=== PATIENT | female | born 1955 | race African-American/Black ===

== ENCOUNTER 2017-02-12 13:25 | Emergency (ER) | payer OTHER ==
--- NOTE | 2017-02-12 16:01 | ER Document Report ---
HPI - HPI Patient complains to provider of: right shoulder and back pain Onset: Other - several days Onset/Duration: Gradual Quality of pain: Burning, Throbbing Pain Level: 5 Context: 61-year-old female complains of right shoulder pain that she has had intermittent for several years and also right-sided back pain which radiates into her right leg down to her right great toe. She is worried that she has a blood clot in her leg. She has a history of sciatica. No saddle anesthesia. No fever. History of cancer, no travel, no immobility. Associated Symptoms: None Exacerbated by: Movement Relieved by: Denies Similar symptoms previously: Yes Recently seen / treated by doctor: No - ROS ROS below otherwise negative: Yes Systems Reviewed and Negative: Yes All other systems reviewed and negative - CARDIOVASCULAR Cardiovascular: DENIES: Chest pain - DERM Skin Color: Normal Past Medical History - General Information source: Patient - Social History Smoking Status: Never Smoker Chew tobacco use (# tins/day): No Frequency of alcohol use: None Drug Abuse: None Lives with: Family Family History: Reviewed & Not Pertinent - Past Medical History Cardiac Medical History: Reports: Hx Hypertension Pulmonary Medical History: Reports: Hx Asthma Renal/ Medical History: Denies: Hx Peritoneal Dialysis Past Surgical History: Reports: Hx Abdominal Surgery - hernia repair, Hx Orthopedic Surgery - lt hammer toe Vertical Provider Document - CONSTITUTIONAL Agree With Documented VS: Yes Exam Limitations: No Limitations - INFECTION CONTROL TRAVEL OUTSIDE OF THE [place] IN LAST 30 DAYS: No - HEENT HEENT: Normocephalic. negative: Conjuctival Injection - NECK Neck: Supple - RESPIRATORY Respiratory: Breath Sounds Normal, No Respiratory Distress O2 Sat by Pulse Oximetry: 99 - CARDIOVASCULAR Cardiovascular: Regular Rate, Regular Rhythm - GI/ABDOMEN Gastrointestinal: Abdomen Soft, Abdomen Non-Tender - BACK Back: Normal Inspection Notes: tender right lumbar muscles into the sacroiliac joint - MUSCULOSKELETAL/EXTREMETIES Musculoskeletal/Extremeties: MAEW, FROM, Tender - see above, No Edema. negative : Eccymosis - NEURO Level of Consciousness: Awake, Alert Motor/Sensory: No Motor Deficit, No Sensory Deficit Deep Tendon Reflexes: 2+ - Bilateral ankle and patellar - DERM Integumentary: Warm, Dry, No Rash Course - Re-evaluation Re-evalutation: 02/12/17 16:11 Venous Doppler ultrasound is negative I will treat her for low back pain with sciatica. - Vital Signs Vital signs: Temp Pulse Resp BP Pulse Ox 98.4 F 96 14 181/93 H 99 02/12/17 13:34 02/12/17 13:34 02/12/17 13:34 02/12/17 13:34 02/12/17 13:34 Discharge - Discharge Clinical Impression: Chronic right shoulder pain Chronic low back pain Qualifiers: Back pain laterality: right Sciatica presence: with sciatica Sciatica laterality: sciatica of right side Qualified Code(s): M54.41 - Lumbago with sciatica, right side Sciatica Qualifiers: Laterality: right Qualified Code(s): M54.31 - Sciatica, right side Condition: Good Disposition: HOME, SELF-CARE Instructions: Anti-Inflammatory Medication ([facility]), Arthralgia ([facility]), Low Back Pain ([facility]), Muscle Relaxers ([facility]), Myalagia (Muscle Pain) ([facility]), Sciatica ([facility]) , Ultram ([facility]) Additional Instructions: warm compress to er if worse see the orthopedic doctor if persists Please complete the patient satisfaction survey if you get one, and return it.. If you do not receive a survey, then you can go to the [facility] website, [email or web address] and place your comments about your very good care. Thank you very much. It was a pleasure being your medical provider today. Prescriptions: Ibuprofen [Motrin 600 mg Tablet] 600 mg PO Q8HP PRN #20 tablet PRN Reason: Cyclobenzaprine HCl [Flexeril 10 Mg Tablet] 10 mg PO TIDP PRN #20 tablet PRN Reason: Tramadol HCl [Ultram 50 mg Tablet] 50 mg PO ASDIR PRN #20 tablet PRN Reason: Referrals: JYOTI MENA MD [ACTIVE STAFF] - Follow up as needed
--- NOTE | 2017-02-12 16:07 | RADIOLOGY REPORT (SQ) ---
EXAM DESCRIPTION: VENOUS UNILATERAL LOWER COMPLETED DATE/TIME: 02/12/2017 3:54 pm REASON FOR STUDY: right leg COMPARISON: None. TECHNIQUE: Dynamic and static persaud scale and color images acquired of the right leg venous system. S elected spectral images acquired with additional compression and augmentation maneuvers. The contrala teral common femoral vein and saphenofemoral junction were also imaged. Images stored on PACS. LIMITATIONS: None. FINDINGS: COMMON FEMORAL: Normal phasicity, compression and augmentation. No visualized echogenic ma terial on persaud scale. No defects on color images. FEMORAL: Normal compression and augmentation. No visualized echogenic material on persaud scale. No defe cts on color images. POPLITEAL: Normal compression, augmentation. No visualized echogenic material on persaud scale. No defec ts on color images. CALF VESSELS: Normal compression, augmentation. No visualized echogenic material on persaud scale. No de fects on color images. GSV and SSV: Normal compression, augmentation. No visualized echogenic material on persaud scale. No def ects on color images. ANY DEEP VENOUS INSUFFICIENCY: Not evaluated. ANY EVIDENCE OF POPLITEAL CYST: No. OTHER: No other significant finding. CONTRALATERAL COMMON FEMORAL VEIN AND SAPHENOFEMORAL JUNCTION: Normal phasicity, compression and augmentation. No visualized echogenic material on persaud scale. No de fects on color images. IMPRESSION: NO EVIDENCE DVT OR SVT IN THE RIGHT LEG. TECHNICAL DOCUMENTATION: JOB ID: [id number] [employer]- All Rights Reserved
[2017-02-12 21:58] VITALS: BP 167/72
== END 2017-02-12 16:24 | disposition home or self-care (01) ==
LOC: ER 13:25
DX: G89.29 Other chronic pain (principal); M25.511 Pain in right shoulder; M54.41 Lumbago with sciatica, right side; I10 Essential (primary) hypertension; J45.909 Unspecified asthma, uncomplicated
CPT/HCPCS: 93971; 99283

== ENCOUNTER 2018-03-29 21:53 | Emergency (ER) | payer SELFPAY ==
[2018-03-29 22:01] VITALS: BP 148/79
[2018-03-29] MEDS ORDERED: ERYTHROMYCIN 0.5% OPH OINTMENT 3.5 GM TUBE OD ONE (22:41)
--- NOTE | 2018-03-29 22:48 | ER Document Report ---
ED General - General Chief Complaint: Eye Pain Stated Complaint: SUPER GLUE IN EYE Time Seen by Provider: 03/29/18 22:35 Notes: Patient is a pleasant 62-year-old -[place] female who excellently put a drop with superglue in her eye. She thought it was 1 of her eyedrops. She takes an eyedrop at night in the morning to help with dry eyes. She immediately placed Vaseline her eye and flushed her eyes very well. She says that her eyelid is not been stuck and she will move her eye back and forth. She does have subconjunctival hemorrhage which she says is been there for several days and is not new. She has no other complaints at this time. She does wear glasses. Does not wear contacts. TRAVEL OUTSIDE OF THE [place] IN LAST 30 DAYS: No - Related Data Allergies/Adverse Reactions: No Known Allergies Allergy (Verified 02/12/17 13:34) Past Medical History - Social History Smoking Status: Unknown if Ever Smoked Frequency of alcohol use: None Drug Abuse: None Family History: Reviewed & Not Pertinent - Past Medical History Cardiac Medical History: Reports: Hx Hypertension Pulmonary Medical History: Reports: Hx Asthma Renal/ Medical History: Denies: Hx Peritoneal Dialysis Past Surgical History: Reports: Hx Abdominal Surgery - hernia repair, Hx Orthopedic Surgery - lt hammer toe Review of Systems - Review of Systems Notes: My Normal Review Basic REVIEW OF SYSTEMS: CONSTITUTIONAL : Denies fever, chills, or sweats. Denies recent illness. EENT: Glue in eye ALL OTHER SYSTEMS REVIEWED AND NEGATIVE. Physical Exam - Vital signs Vitals: Temp Pulse Resp BP Pulse Ox 97.6 F 86 18 148/79 H 100 03/29/18 21:57 03/29/18 21:57 03/29/18 21:57 03/29/18 21:57 03/29/18 21:57 - Notes Notes: General Appearance: Well nourished, alert, cooperative, no acute distress, no obvious discomfort. Vitals: reviewed, See vital signs table. Head: no swelling or tenderness to the head Eyes: Patient does have subconjunctival hemorrhage to the medial aspect of the right eye. She does have a little bit of clear drainage from the eye. She is able to fully move her eye without any difficulty. She is able to open and close her eyelids without any difficulty. I do not see any obvious peeling or scraping along the eye. I do not see an obvious glue patch on the eye at this time. Left eye is normal and unaffected. Neuro: speech clear, oriented x 3, normal affect, responds appropriately to questions. Course - Re-evaluation Re-evalutation: 03/30/18 06:18 Patient did a good job of actually treating herself by flushing the eye immediately and then applying Vaseline which helps degrade the glucose it does not stick to the eye. Diet is well-appearing on exam without any significant concerning findings. I will give her erythromycin ointment as this will continue to help degree to glue and help keep her eye from becoming infected. I encouraged her to call ophthalmology office for close follow-up. Strongly encouraged her return to ER immediately if she has worsening vision, eye swelling, spreading redness, or feels that her symptoms are worsening in any way. She agrees with plan will be discharged home. Dictation of this chart was performed using voice recognition software; therefore, there may be some unintended grammatical errors. - Vital Signs Vital signs: Temp Pulse Resp BP Pulse Ox 97.6 F 86 18 148/79 H 100 03/29/18 21:57 03/29/18 21:57 03/29/18 21:57 03/29/18 21:57 03/29/18 21:57 Discharge - Discharge Clinical Impression: glue in right eye Condition: Good Disposition: HOME, SELF-CARE Additional Instructions: Please apply a small ribbon of the erythromycin ointment in the right eye 5 times a day for 5-7 days. Please call the ophthamologist Wednesday for a close follow up appointment. Please return to the ER immediately if you have increasing pain, blurred vision, spreading redness in your eye, or feel that it is worsening in any way. Return to the ER for reevaluation in 3 days if your symptoms have not improved. Prescriptions: Erythromycin Base [Erythromycin Oph 1 Gm Oint Ud] 1 unit OD ASDIR #2 tube Referrals: BRANDEN DE JESUS DO [ACTIVE STAFF] - 04/04/18 ABRAHAN MAYA MD [ACTIVE STAFF] - 04/04/18
[2018-03-29] MEDS ORDERED: ERYTHROMYCIN 0.5% OPH OINT 1 GM UNIT DOSE ONE (23:01)
== END 2018-03-29 23:15 | disposition home or self-care (01) ==
LOC: ER 21:53
DX: T15.91XA Foreign body on external eye, part unspecified, right eye, initial encounter (principal); X58.XXXA Exposure to other specified factors, initial encounter; H11.31 Conjunctival hemorrhage, right eye; I10 Essential (primary) hypertension; J45.909 Unspecified asthma, uncomplicated; Z79.899 Other long term (current) drug therapy
CPT/HCPCS: 99283; J3490